=== PATIENT | male | born 1945 | race Caucasian/White ===

== ENCOUNTER → 2023-07-05 06:46 | Outpatient (CLI) | payer OTHER, SELFPAY ==
--- NOTE | 2023-07-05 06:49 | DI.ECHO.S_ITS ---
[facility]---------+ [facility] +---------+ : : [address] : : : : [id number] : : : : Phone: [phone]---------+ Echocardiogram Report + + :Name: MAYCOL DORMAN Study Date: 07/05/2023 Height: 68 in : :[facility] ReadingLocation: Weight: 175 lb : : Gender: Male BSA: 1.9 m2 : :: 1945 Age: 77 yrs BP: 132/76 mmHg: :Reason For Study: ATRIAL FIBRILLATION : :Ordering Physician: KATIE, : :ERNESTO Brantley Performed By: Gertrudis Pandey : :Referring: ERNESTO WILSON : + + Interpretation Summary The left ventricle is normal in size and wall thickness. The left ventricular ejection fraction is normal. Left ventricular ejection fraction is estimated to be 60 +/- 5%. The right ventricle is normal in size and function. Tip of the anterior mitral leaflet has some hockey-stick appearance. Some restriction of posterior mitral leaflet without any significant mitral stenosis. Overall moderate mitral regurgitation. Correlate clinically and if there is a history of rheumatic fever, this findings suggest rheumatic mitral valve disease. The aortic valve is trileaflet. The peak aortic velocity is 2.1 m/sec. The aortic valve mean gradient is 12 mmHg. There is mild aortic stenosis. There is mild to moderate aortic regurgitation. There is mild to moderate tricuspid regurgitation. The right ventricular systolic pressure is estimated to be at least 33 mmHg based on an estimated right atrial pressure of 3 mm Hg. Procedure: A two-dimensional transthoracic echocardiogram with color flow and Doppler was performed. The study quality was technically adequate. There is no prior echocardiogram noted for this patient. The patient was in sinus bradycardia with heart rates between 49-53 bpm during the exam. Left Ventricle: The left ventricle is normal in size and wall thickness. There is no thrombus. The left ventricular ejection fraction is normal. Left ventricular ejection fraction is estimated to be 60 +/- 5%. There are no focal wall motion abnormalities. MV E/A: 0.97 Med Peak E' Adan: 6.9 cm/sec E/E' med: 15.9. Right Ventricle: The right ventricle is normal in size and function. Atria: The left atrium is moderately dilated. Right atrial size is normal. There is no Doppler evidence for an interatrial shunt. Mitral Valve: The mitral valve leaflets appear mildly thickened, but open well. Tip of the anterior mitral leaflet has some hockey-stick appearance. Some restriction of posterior mitral leaflet without any significant mitral stenosis. Overall moderate mitral regurgitation. Correlate clinically and if there is a history of rheumatic fever, this findings suggest rheumatic mitral valve disease. No significant mitral valve stenosis. There is mild mitral regurgitation. Aortic Valve: The aortic valve is trileaflet. There is mild aortic valve sclerosis. The aortic valve is mildly calcified. There is mild aortic stenosis. The peak aortic velocity is 2.1 m/sec. The aortic valve mean gradient is 12 mmHg. The calculated aortic valve area is 1.7 cm2. There is mild to moderate aortic regurgitation. Tricuspid Valve: The tricuspid valve is normal. There is mild to moderate tricuspid regurgitation. The right ventricular systolic pressure is estimated to be at least 33 mmHg based on an estimated right atrial pressure of 3 mm Hg. Pulmonic Valve: The pulmonic valve leaflets are thin and pliable; valve motion is normal. There is no pulmonic valvular regurgitation. Great Vessels: The aortic root is normal size. The dimensions of the ascending aorta are normal. The IVC is of normal diameter and collapses greater than 50% with a sniff. This suggests a low right atrial pressure of 3 mm Hg. Pericardium/ Pleura There is no pericardial effusion. There is no pleural effusion. MMode/2D Measurements & Calculations LVIDd: 5.9 cm LVOT diam: 2.3 cm LVIDs: 4.0 cm Ao root diam: 3.6 cm FS: 32.2 % asc Aorta Diam: 3.7 cm IVSd: 0.91 cm Ao Arch Diam (Prox Trans): 2.8 cm LVPWd: 0.72 cm LV mcintrye. diameter/BSA (cm/m^2): 3.1 LV sys. diameter/BSA (cm/m^2): 2.1 LA A2 area: 22.3 cm2 RA long axis: 5.3 cm LA A4 area: 19.3 cm2 RA area: 18.6 cm2 LA length (vol): 5.4 cm RA vol: 55.5 ml LA vol: 67.1 ml RA : 28.7 ml/m2 LA vol index: 34.7 ml/m2 IVC diam: 1.5 cm RVD1 (basal): 3.5 cm RVD2 (mid): 3.0 cm TAPSE: 1.8 cm Doppler Measurements & Calculations Ao V2 max: 213.3 cm/sec LVOT Max Adan: 95.7 cm/sec Ao V2 mean: 159.1 cm/sec LV V1 max P.7 mmHg Ao max P.2 mmHg LV V1 VTI: 23.9 cm Ao mean P.6 mmHg REYNA(I,D): 1.7 cm2 Ao V2 VTI: 58.3 cm REYNA(V,D): 1.8 cm2 sev ratio: 0.41 REYNA indexed to BSA (cm^2/m^2): 0.87 AI P1/2t: 619.5 msec AI dec slope: 174.3 cm/sec2 MV E max adan: 109.6 cm/sec TR max adan: 272.2 cm/sec MV A max adan: 112.6 cm/sec TR max P.6 mmHg MV E/A: 0.97 PA V2 max: 80.9 cm/sec Med Peak E' Adan: 6.9 cm/sec PA V2 mean: 58.6 cm/sec E/E' med: 15.9 PA mean P.5 mmHg Lat Peak E' Adan: 5.9 cm/sec PA pr(Accel): 32.8 mmHg E/E' lat: 18.6 E/e' average: 17.2 MV dec time: 0.49 sec SV(LVOT): 97.6 ml Reading Physician:05:[id number] PM
== END ==
LOC: ECHO 06:48
PROVIDERS: PCP Family Medicine; Referring Provider Nurse Practitioner; Visit Provider Nurse Practitioner
DX: I08.3 Combined rheumatic disorders of mitral, aortic and tricuspid valves (principal); I48.0 Paroxysmal atrial fibrillation
CPT/HCPCS: 93306

== ENCOUNTER → 2023-12-06 10:05 | Outpatient (CLI) | payer OTHER, SELFPAY ==
--- NOTE | 2023-12-06 19:25 | DI.NM.S_ITS ---
DATE OF SERVICE: 12/06/2023 EXERCISE PERFUSION STUDY INDICATION: Atherosclerotic vascular disease, paroxysmal atrial fibrillation, history of heart failure. RADIOPHARMACEUTICAL: 24.6 millicurie technetium-99m Myoview IV was injected at stress and 12.4 millicurie technetium-99m Myoview IV was injected at rest. CARDIAC STRESS: The patient underwent exercise stress test under the supervision of an attending staff. The patient walked on Darinel protocol for 6 minutes and achieved maximum heart rate of 127 which was 89% of target heart rate. Resting blood pressure 108/76 and peak blood pressure 152/70 mmHg. Achieved 7 METs of workload. KATHARINA -8%. Baseline rhythm is sinus with some PACs and PVCs. During stress, frequent PVCs, without any ventricular tachycardia. The patient also developed rate related right bundle branch block and left anterior fascicular block which got resolved in recovery. No typical ischemic EKG changes seen. No chest discomfort. Had dyspnea. RAW DATA: There is increased subdiaphragmatic activity. GATED STUDY: Stress LV ejection fraction 74% and resting LV ejection fraction 72% without any obvious wall motion abnormalities. Resting end- diastolic volume 128 mL. TID ratio 1.06, which is within normal limits. Lung/heart ratio 0.59, which is abnormal. MYOCARDIAL PERFUSION SCAN: Stress supine and resting supine images revealed moderate size, moderate to severely decreased perfusion of inferior wall extending into the inferoapex which got completely resolved during stress prone images suggestive of diaphragmatic tissue attenuation artifact. No convincing ischemia, infarction pattern seen during stress prone images. CONCLUSION: This is a normal myocardial perfusion study with evidence of diaphragmatic tissue attenuation artifact which got improved during stress prone images. Fair exercise tolerance. Normal hemodynamic response. Rate related right bundle branch and left anterior fascicular block during stress which got improved during recovery. Frequent PVCs during exercise without any ventricular tachycardia. No chest pain. The patient had shortness of breath. Preserved left ventricular function. Elevated lung heart ratio suggestive of elevated LV filling pressure. Consider 2D echo to rule out diastolic dysfunction or valvular pathology. As far as perfusion scan is concerned, this is a low-risk myocardial perfusion scan. Bandar Snowden - DIMA/mary/YAA doc#: [id number]/job#: [id number] dd: 12/06/2023 16:36:00 dt: 12/06/2023 19:13:00 DICTATING MD/COPIES TO: Deonte Calderon MD COPIES MNE: BERRY;
== END ==
PROVIDERS: PCP Family Medicine; Referring Provider Internal Medicine Cardiovascular Disease; Visit Provider Internal Medicine Cardiovascular Disease
DX: I48.0 Paroxysmal atrial fibrillation (principal); I70.0 Atherosclerosis of aorta; I50.9 Heart failure, unspecified; I11.0 Hypertensive heart disease with heart failure; E78.5 Hyperlipidemia, unspecified; I42.0 Dilated cardiomyopathy
CPT/HCPCS: 78452; 93017; A9502